=== PATIENT | male | born 1975 | race African-American/Black ===

== ENCOUNTER 2025-08-14 06:39 | Emergency (ER) | payer OTHER, SELFPAY ==
[2025-08-14 06:49] VITALS: BP 158/113
[2025-08-14 07:02] VITALS: BP 151/103
--- NOTE | 2025-08-14 07:19 | ED.GENMED ---
History of Present Illness
General
Chief Complaint: Chest Pain
Source: patient
Time Seen by Provider: 08/14/25 07:08
History of Present Illness
History of Present Illness:
50-year-old female presents to the emergency room complaining of chest pain. Patient states he developed pain in his left upper chest yesterday afternoon. Patient was food shopping when the pain started. It radiates down to his left arm. Pain is
worse with movement as well as breathing. He does not feel particular short of breath. He cannot recall any particular injury. Patient does have neuropathic pain related to a right arm injury. He tried his gabapentin but did not work.
Phy Exam
Physical Exam
Physical Exam:
General: Awake, Alert, Oriented X3. No acute distress.
Vitals: unremarkable
Head: Atraumatic
Eyes: Pupils equal, EOMI
Throat: Airway intact, no exudates
Neck: Trachea midline
Chest: Tender to palpation over the left anterior chest
Lungs: Clear and equal b/l
Heart: Regular rate, no murmurs
Abd: Soft, Nontender, No pulsatile mass
Neuro: Nonfocal
Skin: Warm, dry, no rash
Extremities: pulses equal b/l, no edema
Scores
Heart Score for Chest Pain Patients
STEMI patient?: No
History: Slightly or Non-Suspicious
ECG: Normal
Age: >45 - <65 years
Risk Factors: 1 or 2 Risk Factors
Troponin: </= Normal Limit
Heart Score for Chest Pain Patients: 2
Heart Score Risk: 2.5% MACE over next 6 weeks
Course
Orders/Labs/Results
Orders:
Orders
08/14/25 06:41
EKG [Electrocardiogram (*1)] Urgent
Reason for Study: Chest Pain
EKG- Treatment ONCE
08/14/25 07:06
Cardiac Monitoring- Treatment ONCE
IV Insert/Care/Rem.- Treatment PRN
08/14/25 07:10
Complete Blood Count/With Diff Urgent
Comprehensive Metabolic Panel Urgent
Troponin I Urgent
08/14/25 07:16
CR Chest - 2 Views Urgent
Comment:
Reason For Exam: chest pain
08/14/25 07:18
Oxycodone [Roxicodone] 5 mg PO NOW STA
08/14/25 09:38
Dexamethasone Sod Phosphate [Decadron] 6 mg IV NOW STA
HYDROmorphone [Dilaudid] 1 mg IV NOW STA
Abnormal Lab Results
08/14/25
07:10
WBC 4.7 L 10^3/uL
(4.8-10.8)
RBC 4.01 L 10^6/uL
(4.70-6.10)
MCV 98.8 H fL
(80.0-94.0)
MCH 32.4 H pg
(27.0-31.0)
MCHC 32.8 L g/dL
(33.0-37.0)
Glucose 100 H mg/dl
(70-99)
08/14/25 07:10
08/14/25 07:10
Vital Signs
Initial and Last Documented VS:
Initial Vital Signs
Temp Pulse Resp BP Pulse Ox
98.4 F 91 20 158/113 99
08/14/25 06:49 08/14/25 06:49 08/14/25 06:49 08/14/25 06:49 08/14/25 06:49
Last Documented Vital Signs
Temp Pulse Resp BP Pulse Ox
98.4 F 72 11 127/88 99
08/14/25 06:49 08/14/25 09:45 08/14/25 09:45 08/14/25 09:00 08/14/25 07:21
MDM/Problems Addressed
Differential Diagnosis Includes:
Acute coronary syndrome, chest wall pain, cervical radiculopathy, muscle strain
MDM/Problems Addressed:
Patient presents with pain in his left shoulder rating down her left arm. No focal weakness. Cardiac workup negative. Chest x-ray is unremarkable. Overall presentation seems most concerning for a cervical radiculopathy. Will treat with
analgesia and steroids. Recommend follow-up with [facility]. Return for worsening symptoms.
*Radiology
Radiology exam reviewed: preliminary read by ED provider (No acute disease to my review of the patient's chest x-ray)
*Pulse Oximetry
SaO2: 99
Oxygen Mode of Delivery: Room air
Patient hypoxic: no
*EKG
Interpreted by ED Provider?: Yes
Interpretation: normal
Comparison EKG: no comparison EKG present
Heart Rate: 78
Rate: normal
Rhythm: sinus
[place]: normal axis
Interval: normal interval
QRS Pattern: normal QRS
Ischemia: no ischemia
*Corporate Attorney Interpretation
Rate: normal
Interpretation: normal
Heart Rate: 78
Rhythm: sinus
*Critical Care Note
Total Time (30-74mins, 75-104mins- exclusive of procedures): Not Applicable
ED Attending Note
-
Portions of this chart may have been created with voice recognition software.� Occasional wrong word or��sound alike� substitutions may have occurred due to the inherent limitations of voice recognition software.
Discharge Plan
Departure
Patient Disposition: Home (Routine Discharge)
Date of Disposition: 08/14/25
Time of Disposition: 09:39
Patient with high blood pressure during this ER visit?: Yes
Condition: Good
Discharge Problem:
Cervical radiculopathy
Instructions: Radiculopathy of the neck and back (including sciatica), BLOOD PRESSURE
Prescriptions:
New
methylprednisolone [Medrol (Umair)] 4 mg tablets,dose pack
See Rx Instructions .ROUTE .COMPLEX Qty: 21 0RF
Rx Instructions:
for 6 days
oxycodone 5 mg tablet
5 mg PO Q6H PRN (Reason: Pain) Qty: 12 0RF
Referrals:
Freddy Castaneda MD [Active, Anesthesiology]
UNKNOWN - PT DOES,NOT KNOW [Family Provider]
Activity Restrictions/Additional Instructions:
I believe the pain you are experiencing in your left arm is related to a disc in your spine causing irritation to a nerve. This is called a radiculopathy. Will treat this with pain medicine and steroids. He should with your primary care provider.
Have also given you contact information for Dr. Castaneda who specializes in treating these type of situations. You will likely need an MRI as an outpatient. Your heart test and chest x-ray are normal. Return to the emergency room if you develop
weakness, bowel or bladder dysfunction.
Interventions
Interventions:
*Risk Screen - Suicide Last Done: 08/14/25 06:49
*General Assessment Last Done: 08/14/25 06:49
*Neglect/Abuse Screening Last Done: 08/14/25 06:49
*ED- Fall Risk Assessment Last Done: 08/14/25 10:15
*ED COVID-19 Vaccine History Last Done: 08/14/25 06:49
*ED Influenza Vaccine History Last Done: 08/14/25 06:49
*Nursing Disposition Last Done: 08/14/25 10:15
ED- Cardiac Assessment Last Done: 08/14/25 10:15
Discharge Date and Time
Discharge Date/Time: 08/14/25 10:16
Print Language: BELARUSIAN
[2025-08-14] MEDS: ROXICODONE 5 MG PO (07:24)
[2025-08-14 07:39] LABS: Hematocrit 39.6 % (39.0-52.0); Hemoglobin 13.0 g/dL (13.0-18.0); Mean Corp Hgb Conc. 32.8 g/dL (33.0-37.0); Mean Corpuscular Volume 98.8 fL (80.0-94.0); Nucleated Red Blood Cells % 0 % (-); Platelet Count 214 10^3/uL (130-400); Red Cell Dist. Width 12.2 % (11.5-14.5)
[2025-08-14 08:00] VITALS: BP 129/77
[2025-08-14 08:07] LABS: ALT (SGPT) 29 U/L (0-50); AST (SGOT) 22 U/L (17-59); Albumin 4.1 g/dl (3.5-5.0); Alkaline Phosphatase 111 U/L (38-126); Blood Urea Nitrogen 14 mg/dl (9-20); Calcium 9.3 mg/dl (8.4-10.2); Carbon Dioxide 28 mmol/L (22-30); Chloride 106 mmol/L (98-107); Estimated Creatinine Clearance 110 ml/min; Glucose 100 mg/dl (70-99); Potassium 3.7 mmol/L (3.5-5.1); Sodium 135 mmol/L (135-145); Total Protein 7.2 g/dl (6.3-8.2); eGFR > 60.00
[2025-08-14 08:17] LABS: Troponin I < 0.012 ng/ml
[2025-08-14 09:00] VITALS: BP 127/88
[2025-08-14] MEDS: DECADRON 6 MG IV (09:44)
[2025-08-14] MEDS: DILAUDID 1 MG IV (09:45)
== END 2025-08-14 10:16 | disposition home or self-care (01) ==
LOC: EMR 06:39
PROVIDERS: EMERGENCY PHYSICIAN Emergency Medicine
DX: M54.12 Radiculopathy, cervical region (principal); M79.602 Pain in left arm; R03.0 Elevated blood-pressure reading, without diagnosis of hypertension; Z88.6 Allergy status to analgesic agent; Z88.0 Allergy status to penicillin
CPT/HCPCS: 99284; 96374; 96375; 71046; 80053; 84484; 85025; 93005

== ENCOUNTER 2025-08-17 08:09 | Emergency (ER) | payer OTHER, SELFPAY ==
[2025-08-17 08:11] VITALS: BP 164/106
== END 2025-08-17 09:02 | disposition left against medical advice (07) ==
LOC: EMR 08:09
DX: Z53.21 Procedure and treatment not carried out due to patient leaving prior to being seen by health care provider (principal)
CPT/HCPCS: 93005